=== PATIENT | female | born 1985 | race Caucasian/White ===

== ENCOUNTER 2016-12-01 10:13 | Emergency (ER) | payer SELFPAY ==
[~2016-12-01] VITALS: Ht 154.9 cm; Wt 82.0 kg
[2016-12-01] MEDS ORDERED: HYDROCODONE/APAP 7.5/325MG 1 TAB TABLET PO ONE (12:00)
[2016-12-01 13:39] VITALS: BP 121/80
== END 2016-12-01 14:02 | disposition home or self-care (01) ==
LOC: ER 13:20
DX: S16.1XXA Strain of muscle, fascia and tendon at neck level, initial encounter (principal); M25.511 Pain in right shoulder; M54.89 Other dorsalgia; V49.49XA Driver injured in collision with other motor vehicles in traffic accident, initial encounter; Y93.89 Activity, other specified; Y92.410 Unspecified street and highway as the place of occurrence of the external cause; E11.9 Type 2 diabetes mellitus without complications
CPT/HCPCS: 72070; 73030; 81025; 99284; Z7610